=== PATIENT | female | born 1995 | race Caucasian/White ===

== ENCOUNTER 2017-04-22 22:08 | Inpatient (IN) | payer BC ==
[~2017-04-22] VITALS: Ht 167.6 cm; Wt 163.3 kg
[~2017-04-22 22:08] MED LIST: DAILY VALUE1 EACH PO; PROVENTIL HFA6.7 GM IH
[2017-04-23 12:20] VITALS: BP 131/67
[2017-04-23 12:28] LABS: POINT-OF-CARE METER ID UU13113694
[2017-04-23 17:34] VITALS: BP 140/69
[2017-04-23 18:45] LABS: POINT-OF-CARE METER ID UU14208750
[2017-04-23 19:21] VITALS: BP 131/72
[2017-04-23 23:18] VITALS: BP 135/79
[2017-04-23 23:55] LABS: POINT-OF-CARE METER ID UU14208750
[2017-04-24 05:55] LABS: POINT-OF-CARE METER ID UU14208750
[2017-04-24 06:40] LABS: HEMATOCRIT 38.6 % (36.0-46.0); MCH 27.4 PG (29.0-34.0); MCHC 32.1 G/DL (30.0-36.0); MCV 85.4 FL (83-99); MEAN PLAT.VOLUME 10.7 uM^3 (9.5-12.4); PLATELET COUNT 246 K/uL (156-360); RBC DIS.WIDTH-CV 13.4 % (11.8-14.6); RBC DIS.WIDTH-SD 42.1 % (39-53); RED BLOOD COUNT 4.52 M/uL (3.80-5.20)
[2017-04-24 07:06] LABS: ANION GAP 11 MEQ/L (2-14); CHLORIDE 106 MEQ/L (99-109); GFR ESTIMATE (CALCULATED) > 59 mL/min/; GLUCOSE 111 mg/dL (70-99); MAGNESIUM 1.9 mg/dl (1.3-2.7); POTASSIUM 4.4 MEQ/L (3.7-5.4); SAMPLE HEMOLYSIS CHECK 0; SAMPLE ICTERIC CHECK 0; SAMPLE LIPEMIA CHECK 0; SODIUM 137 MEQ/L (136-147); UREA NITROGEN (BUN) 7 mg/dL (9-23)
[2017-04-24 07:15] VITALS: BP 165/95
[2017-04-24 11:31] VITALS: BP 135/69
[2017-04-24 12:06] LABS: POINT-OF-CARE METER ID UU14208750
[2017-04-24 16:13] VITALS: BP 128/85
[2017-04-24] MEDS ORDERED: PERCOCET 5/31 TABLET PO (17:41)
== END 2017-04-24 18:20 | disposition home or self-care (01) | DRG 621 ==
LOC: ENRESERV 22:08 → 2SOUTH 04-23 08:29 → ENRESERV 04-23 16:05 → 2EASTP 04-23 17:32
PROVIDERS: Surgery
PROC: 0DB64Z3 Excision of Stomach, Percutaneous Endoscopic Approach, Vertical (ICD-10-PCS; principal; 2017-04-23)
DX: E66.01 Morbid (severe) obesity due to excess calories (principal); J45.909 Unspecified asthma, uncomplicated; F17.200 Nicotine dependence, unspecified, uncomplicated; Z68.43 Body mass index [BMI] 50.0-59.9, adult
CPT/HCPCS: 80048; 82948; 83735; 84100; 85027; C9113; J0131; J0330; J0690; J1100; J1170; J1644; J1650; J1815; J1885; J2250; J2270; J2405; J2710; J2765; J3010; J3480; J7120; S0020